=== PATIENT | male | born 1980 | race Caucasian/White ===

== ENCOUNTER 2018-09-12 19:45 | Emergency (ER) | payer OTHER ==
[2018-09-12] MEDS ORDERED: Aspirin Chewable 81 MG TAB ONE (20:18)
[2018-09-12 20:28] LABS: #Eosinphils 0.1 thou/uL (0.0-0.7); #Monocytes 0.6 thou/uL (0.11-0.59); #Neutrophils 3.8 thou/uL (1.40-6.50); %Basophils 0.4 % (0.0-1.0); %Eosinophils 1.6 % (0.0-10.0); %Lymphocytes 30.4 % (21.0-51.0); %Monocytes 9.4 % (0.0-10.0); %Neutrophils 58.2 % (42.0-75.0); Hemoglobin 15.5 g/dL (14.0-18.0); Mean Corpuscular HGB CONC 33.5 g/dL (32.0-36.0); Mean Corpuscular Hemoglobin 29.5 pg (27.0-31.0); Mean Corpuscular Volume 88.2 fL (78.0-98.0); Mean Platelet Volume 7.6 fL (7.4-10.4); Platelet Count 195 thou/uL (130-400); Red Blood Cell (RBC) Count 5.26 mill/uL (4.70-6.10); White Blood Cell (WBC) Count 6.6 thou/uL (4.8-10.8)
--- NOTE | 2018-09-12 20:29 | RAD ---
CHEST ONE VIEW: HISTORY: Short of breath. Chest pain. Left upper extremity paresthesia. COMPARISON: None. FINDINGS: Lungs: Elevated right hemidiaphragm with adjacent pleural-based density at the lower right chest. T here is a faint nodular density. Cardiac silhouette: Normal size. Pulmonary vessels: Normal. Pleural Spaces: Pleural-based density, inferior right chest. Pneumothorax: None. Osseous abnormalities: None of acuity. IMPRESSION: 1. Elevated right hemidiaphragm with pleural-based density that may relate to pleural fluid. 2. Small nodular density adjacent the elevated right hemidiaphragm. 3. Recommend follow-up two-view chest series to confirm resolution, after completion of treatment re teodoro. Transcribed Date/Time: 09/12/2018 8:35 PM
[2018-09-12 20:48] LABS: ALT (SGPT) 92 U/L (8-55); AST (SGOT) 42 U/L (5-34); Albumin 4.4 g/dL (3.5-5.0); Alkaline Phosphatase 52 U/L (40-150); Anion Gap 16 mmol/L (10-20); BUN (Urea Nitrogen) 12 mg/dL (8.9-20.6); Bilirubin, Total 0.3 mg/dL (0.2-1.2); Calc. Creatinine Clearance 0 mL/min (70-130); Carbon Dioxide 23 mmol/L (22-29); Chloride 107 mmol/L (98-107); Estimated GFR-MDRD 85; Globulin 2.5 g/dL (2.4-3.5); Glucose 157 mg/dL (70-105); Potassium 3.8 mmol/L (3.5-5.1); Protein, Total 6.9 g/dL (6.0-8.3); Sodium 142 mmol/L (136-145)
--- NOTE | 2018-09-12 22:50 | RAD ---
CHEST TWO VIEWS: HISTORY: Chest pain and shortness of breath. COMPARISON: Exam done earlier, same day. FINDINGS: Lungs: Persistent pleural-based density of the inferior right hemithorax, with adjacent patchy paren chymal opacification of the right lung base. The prior nodular density is slightly less conspicuous, although may be superimposed upon anterior and posterior ribs of this region of the infe rolateral right hemithorax. Cardiac silhouette: Normal size. Pulmonary vessels: Normal. Pleural Spaces: There is pleural-based density of the inferior right chest with obscuration of the p osterior and lateral costophrenic sulcus. Pneumothorax: None. Osseous abnormalities: None of acuity. IMPRESSION: 1. Persistent pleural-based density of the inferior right chest. There is mild patchy right basilar density. Findings could relate to pleural fluid and/or pleural thickening/scar with mild adjacent volume loss/scar of the right lung base. 2. Prior nodular density of the inferolateral right lung is less conspicuous, likely superimposed up on anterior and posterior ribs. Recommend follow-up imaging upon resolution of pleural-based opacity to more optimally assess this region. Transcribed Date/Time: 09/12/2018 11:24 PM
--- NOTE | 2018-09-18 13:59 | EKG ---
Test Reason : CHEST PAIN Blood Pressure : / mmHG Vent. Rate : 133 BPM Atrial Rate : 133 BPM P-R Int : 126 ms QRS Dur : 072 ms QT Int : 306 ms P-R-T Axes : 066 028 043 degrees QTc Int : 455 ms Sinus tachycardia Nonspecific T wave abnormality Abnormal ECG Confirmed by RG MARSHALL M.D. ([id number]), editorial director KATARZYNA ZAFAR ([id number]) on 09/18/2018 1:58:41 PM Referred By: Confirmed By:RG MARSHALL M.D.
== END 2018-09-12 23:47 | disposition home or self-care (01) ==
LOC: ERS 19:45
DX: R07.2 Precordial pain (principal); E86.0 Dehydration; I10 Essential (primary) hypertension; F41.9 Anxiety disorder, unspecified; F32.9 Major depressive disorder, single episode, unspecified
CPT/HCPCS: 36415; 71045; 71046; 80053; 84484; 85025; 93005; 96360; 96361

== ENCOUNTER 2018-09-13 16:04 | Emergency (ER) | payer OTHER ==
[2018-09-13 18:37] LABS: #Eosinphils 0.1 thou/uL (0.0-0.7); #Monocytes 0.7 thou/uL (0.11-0.59); #Neutrophils 4.9 thou/uL (1.40-6.50); %Basophils 0.4 % (0.0-1.0); %Eosinophils 1.6 % (0.0-10.0); %Lymphocytes 25.4 % (21.0-51.0); %Monocytes 9.2 % (0.0-10.0); %Neutrophils 63.3 % (42.0-75.0); Hemoglobin 16.1 g/dL (14.0-18.0); Mean Corpuscular HGB CONC 33.7 g/dL (32.0-36.0); Mean Corpuscular Hemoglobin 29.3 pg (27.0-31.0); Mean Platelet Volume 7.7 fL (7.4-10.4); Platelet Count 189 thou/uL (130-400); RBC Distribution Width 11.8 % (11.5-14.5); Red Blood Cell (RBC) Count 5.52 mill/uL (4.70-6.10); White Blood Cell (WBC) Count 7.7 thou/uL (4.8-10.8)
[2018-09-13 18:55] LABS: ALT (SGPT) 88 U/L (8-55); AST (SGOT) 37 U/L (5-34); Albumin 4.8 g/dL (3.5-5.0); Alkaline Phosphatase 59 U/L (40-150); Anion Gap 16 mmol/L (10-20); BUN (Urea Nitrogen) 12 mg/dL (8.9-20.6); Bilirubin, Total 0.5 mg/dL (0.2-1.2); Calc. Creatinine Clearance 0 mL/min (70-130); Calcium 9.9 mg/dL (7.8-10.44); Carbon Dioxide 24 mmol/L (22-29); Chloride 101 mmol/L (98-107); Estimated GFR-MDRD Greater than 90; Globulin 2.8 g/dL (2.4-3.5); Glucose 98 mg/dL (70-105); Potassium 4.2 mmol/L (3.5-5.1); Protein, Total 7.6 g/dL (6.0-8.3); Sodium 137 mmol/L (136-145)
--- NOTE | 2018-09-18 13:59 | EKG ---
Test Reason : CP Blood Pressure : / mmHG Vent. Rate : 093 BPM Atrial Rate : 093 BPM P-R Int : 134 ms QRS Dur : 092 ms QT Int : 354 ms P-R-T Axes : 045 023 016 degrees QTc Int : 440 ms Normal sinus rhythm Normal ECG Confirmed by RG MARSHALL M.D. ([id number]), magazine editor KATARZYNA ZAFAR ([id number] on 09/18/2018 1:58:49 PM Referred By: JOANNA Confirmed By:RG MARSHALL M.D.
== END 2018-09-13 19:44 | disposition home or self-care (01) ==
LOC: ERS 16:04
DX: F41.9 Anxiety disorder, unspecified (principal); F32.9 Major depressive disorder, single episode, unspecified
CPT/HCPCS: 36415; 80053; 84484; 85025; 93005